=== PATIENT | female | born 2000 | race Caucasian/White ===

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

== ENCOUNTER → 2022-06-28 10:49 | Outpatient (BNVA) | payer MEDICAID, SELFPAY | PROVIDERS: Family Provider Pediatrics Adolescent Medicine; Visit Provider Nurse Practitioner Family | DX: J02.9 Acute pharyngitis, unspecified (principal); J06.9 Acute upper respiratory infection, unspecified; H10.31 Unspecified acute conjunctivitis, right eye | CPT/HCPCS: 87071; 87880 ==

== ENCOUNTER → 2024-02-19 18:07 | Outpatient (BNVA) | payer MEDICAID, SELFPAY | PROVIDERS: Family Provider Pediatrics Adolescent Medicine; Visit Provider Nurse Practitioner | DX: S99.911A Unspecified injury of right ankle, initial encounter (principal); M25.571 Pain in right ankle and joints of right foot; X50.9XXA Other and unspecified overexertion or strenuous movements or postures, initial encounter; W10.1XXA Fall (on)(from) sidewalk curb, initial encounter | CPT/HCPCS: 73610 ==

== ENCOUNTER 2025-02-18 22:43 | Outpatient (CLI) | payer MEDICAID, SELFPAY ==
[2025-02-18 22:43] VITALS: BMI 32.1
[2025-02-18 22:52] VITALS: BP 118/69; PULSE 88; RESP 16; TEMP 35.8
[2025-02-18 23:20] VITALS: BP 100/58; PULSE 87
[2025-02-19 00:43] VITALS: BP 106/71; PULSE 93
[2025-02-19 00:50] VITALS: BP 106/71; PULSE 93; RESP 16; TEMP 35.7; O2SAT 96
== END 2025-02-19 00:51 | disposition home or self-care (01) ==
LOC: OPOB 22:44 → OBGYN 22:45
PROVIDERS: Visit Provider Family Medicine
DX: O26.899 Other specified pregnancy related conditions, unspecified trimester (principal); Z3A.00 Weeks of gestation of pregnancy not specified; R10.9 Unspecified abdominal pain
CPT/HCPCS: 59025; 99211

== ENCOUNTER 2025-02-22 12:21 | Inpatient (IN) | payer MEDICAID, SELFPAY ==
[2025-02-19 00:43] VITALS: RESP 16; TEMP 35.7; O2SAT 96
[2025-02-22] VITALS (23 sets, daily range): BP systolic 91–129; BP diastolic 51–82; PULSE 55–144; RESP 16; TEMP 36–36.9; O2SAT 95–100; BMI 31.8
[2025-02-22 12:45] LABS: Hematocrit 38.8 % (36-47); Hemoglobin 12.90 g/dL (11.27-16.99); Mean Corpuscular HGB Conc 33.2 g/dL (30-55); Mean Corpuscular Hemoglobin 28.5 pg (27-33); Mean Corpuscular Volume 85.7 fl (85-98); Nucleated Red Blood Cells % 0 %; Platelet Count 241 10^3/cmm (157-399); Red Blood Count 4.53 10^6/uL (3.85-5.65); White Blood Count 11.64 10^3/uL (3.29-11.43)
[2025-02-22] MEDS: ROPivacaine premix 200 MG/100 ML PREMIX 10 MG EPIDURAL (13:55)
--- NOTE | 2025-02-22 14:04 | ANES.PREANE2 ---
Pre-Anesthetic Assessment Height/Weight: Height 5 ft 2 in Weight 174 lb Temp Pulse Resp BP Pulse Ox O2 Del Method 96.8 F L 61 16 127/71 100 Room Air 02/22/25 11:37 02/22/25 13:56 02/19/25 00:43 02/22/25 13:56 02/22/25 13:51 02/22/25 11:30 Preop Diagnosis: IUP Was Beta Sabrina taken within 24 hours: N/A Was Clonidine taken within 24 hours: N/A Social No alcohol and No tobacco Exam alert, oriented x 3, clear to auscultation bilaterally and regular rate & rhythm Airway Submandibular: within normal limits Cervical ROM: within normal limits Mallampati: Class II Dentition: full Anesthetic Plan ASA status: 2 Anesthesia: Regional (specify below) Other: G2, P1 here for active labor Denies any issues during Denies any cardiac or pulmonary issues Labs from today reviewed acceptable for procedure Plan for routine epidural placement Medications/Allergies Home Medications ?Medication ?Instructions ?Recorded ?Confirmed ?Last Taken ?Type vit 102-iron 27 mg-folic 1 pkg PO DAILY 08/27/24 02/18/25 Unknown History ac 800 mcg-dha 200 mg-lut oral pack cetirizine 10 mg tablet (All Day 10 mg PO DAILY #30 tabs 10/25/24 02/18/25 Unknown Rx Allergy (cetirizine)) Allergies Allergy/AdvReac Type Severity Reaction Status Date / Time No Known Allergies Allergy Verified 02/18/25 23:06 Current Medications Generic Name Dose Route Start Last Admin Trade Name Freq PRN Reason Stop Dose Admin Lactated Ringer's 1,000 mls @ 999 mls/hr 02/22/25 12:04 02/22/25 13:58 Lactated Ringers IV 999 mls/hr .Q1H1M PRN Administration See label comments Ropivacaine 200 mg in 100 mls @ 10 mls/hr 02/22/25 12:15 02/22/25 13:55 Naropin Premix EPIDURAL 10 mls/hr .Q10H [place] Administration PFSH Anesthesia Medical History Left otitis externa Left acute otitis media Irritable bowel syndrome Group B streptococcal carriage complicating 03/29/2019: GBS culture positive. Needs prophylaxis in labor. Chronic abdominal pain Chronic GERD Influenza A Jul 2019 Family History Family/Other Breast cancer PATERNAL AUNT Patient denies medical problems Patient denies any family history of hypertension, diabetes, heart disease, stroke, hypercholesterolemia, thryoid problems, ovarian cancer, uterine cancer, colon cancer. Social History Smoking and tobacco/nicotine status: current every day tobacco/nicotine user e-cigarettes E-Cigarette Details: with nicotine Second hand smoke exposure: No Alcohol intake: never Substance/Drug Use: never Adopted: No service: No Current occupational exposures/hazards: No Female Reproductive History : 2 Data Anesthesia 02/22/25 12:30 Short CBC 02/22/25 Range/Units 12:30 WBC 11.64 H (3.29-11.43) 10^3/uL Hgb 12.90 (11.27-16.99) g/dL Hct 38.8 (36-47) % MCV 85.7 (85-98) fl Plt Count 241 (157-399) 10^3/cmm Neut % (Auto) 77.6 % Neut # (Auto) 9.03 H (1.8-7.7) 10^3/uL Blood Bank 02/22/25 12:30 Blood Type O Positive Rho(D) Type Rh positive
--- NOTE | 2025-02-22 14:05 | ANES.PROC ---
Anesthesia Procedures Procedure/Date: 02/22/25 Epidural: Time Out Performed: Yes Consents Signed: Procedure Consent Consent: requested by attending/covering physician and from patient Lumbar Level: L3-L4 Epidural position: sitting Additional Comments: CSC performed. Site was sterilely prepped with ChloraPrep. 1% lidocaine was used to numb skin. An 18-gauge epidural needle was then introduced until [id number] was achieved around 7 cm. A 27-gauge spinal needle was then introduced into the spinal canal. 1 cc of 0.25% bupivacaine was then injected into the spinal space. Spinal needle was removed and epidural catheter was then threaded into the epidural space and left at 15 cm to the skin. Sterile dressing was applied. Patient tolerated procedure well. Epidural set at 10 mL/h on 0.2% ropivacaine
[2025-02-22] MEDS: oxytocin 30 UNIT/500 ML BAG 600 UNIT IV (15:11)
--- NOTE | 2025-02-22 15:22 | PM.OPHPUD ---
Labor & Delivery H&P Update Date of Procedure: February 22, 2025 Date H&P Performed: 02/16/25 Admission Diagnosis: Active labor IUP at 39 weeks 6 days gestation Preop diagnosis: IUP
--- NOTE | 2025-02-22 15:23 | P.PCNOB_ITS ---
Delivery Note: Date of delivery: February 22, 2025 Procedure: Normal spontaneous vaginal delivery Pre-Delivery Course: The patient had routine care at [facility]. There were no complications during the . labs: Blood type O+ antibody negative, hepatitis B nonreactive, hepatitis C nonreactive, HIV nonreactive, rubella immune, GC chlamydia negative, RPR nonreactive, UDS negative, Q low risk, she passed her glucose tolerance test, she was GBS negative. Delivery: This is a 24 y/o at 39w5d gestation who presented in active labor. She received an epidural for pain management. Her labor progressed well on its own and she had spontaneous rupture of membranes less than an hour prior to delivery. She only had to push through 2 contractions to have a normal spontaneous vaginal delivery of a viable female infant Apgars 8 and 10 over an intact perineum. The infant was suctioned at delivery and placed on the mother's chest. The cord was clamped and cut. The placenta was delivered grossly intact and normal to inspection. There were no lacerations. Mother and were doing well after delivery. History History History 2 Term 1 0 Miscarriages/Ectopic 0 Living Children 1 A&P PDMP PDMP Reviewed: Not Reviewed Coding Level of Care Code Acute Code for Chg Fwd
[2025-02-22] MEDS: benzocaine-menthol 78 gm Canister 1 SPRAY TOPICAL (17:35)
[2025-02-23 00:52] VITALS: BP 119/77; PULSE 64; RESP 16; TEMP 36.8
[2025-02-23] MEDS: PRENATAL VIT NO.130/IRON/FOLIC 1 EACH TABLET PO (04:02)
[2025-02-23 04:03] VITALS: BP 98/64; PULSE 60; RESP 16; TEMP 36.7; O2SAT 98
[2025-02-23 04:33] LABS: Hematocrit 32.8 % (36-47); Hemoglobin 10.90 g/dL (11.27-16.99); Mean Corpuscular HGB Conc 33.2 g/dL (30-55); Mean Corpuscular Hemoglobin 27.8 pg (27-33); Mean Corpuscular Volume 83.7 fl (85-98); Platelet Count 211 10^3/cmm (157-399); Red Blood Count 3.92 10^6/uL (3.85-5.65); White Blood Count 13.84 10^3/uL (3.29-11.43)
[2025-02-23 09:40] VITALS: BP 99/63; PULSE 70; RESP 16; TEMP 36.9
--- NOTE | 2025-02-23 12:06 | ANE.PACU2 ---
Inpatient post-anesthesia follow up: Airway intact: Yes Vital signs: Temperature 98.0 F Pulse Rate 61 Respiratory Rate 17 Blood Pressure 106/76 Pulse Oximetry 97 Oxygen Delivery Me thod Room Air Oxygen Flow Rate Fraction of Inspir ed Oxygen Hydration adequate: Yes Nausea and vomiting: No Pain level: 1 Mental status: Baseline Epidural Start/End: Epidural Start Date: 02/22/25 Epidural Start Time: 13:55 Epidural End Date: 02/22/25 Epidural End Time: 17:00
--- NOTE | 2025-02-23 12:20 | PM.DCS ---
Discharge Providers Date of Admission: 02/22/25 12: Date of Discharge: February 23, 2025 Attending Provider at Admission: Zulma Gimenez MD Attending Provider at Discharge: Zulma Gimenez MD Primary Care Provider: Elle Smith NP Reason for Visit Reason for Visit: Ctx. 2-4 min Hospital Course Hospital Course This is a 24-year-old G2 now P2 who had a normal spontaneous vaginal delivery of a viable female infant. Mother and infant have done well after delivery. Mother is day #1 and has decreased vaginal bleeding. She is ambulating and tolerating a regular diet. She is comfortable with discharge home. Physical Exam Narrative: Sleeping, easily arousable, heart regular rate and rhythm, lungs clear to auscultation bilaterally, abdomen is soft and nontender, fundus is firm, extremities have trace edema but no calf tenderness Discharge Data Studies Completed and Pending Laboratory Results WBC 13.84 10^3/uL (3.29-11.43) H 02/23/25 04:00 RBC 3.92 10^6/uL (3.85-5.65) 02/23/25 04:00 Hgb 10.90 g/dL (11.27-16.99) L 02/23/25 04:00 Hct 32.8 % (36-47) L 02/23/25 04:00 MCV 83.7 fl (85-98) L 02/23/25 04:00 MCH 27.8 pg (27-33) 02/23/25 04:00 MCHC 33.2 g/dL (30-55) 02/23/25 04:00 RDW 12.5 % (12.1-15.1) 02/23/25 04:00 Plt Count 211 10^3/cmm (157-399) 02/23/25 04:00 MPV 10.9 fL (7.4-10.4) H 02/23/25 04:00 Neut % (Auto) 77.6 % 02/22/25 12:30 Lymph % (Auto) 14.5 % 02/22/25 12:30 Dougherty % (Auto) 6.4 % 02/22/25 12:30 Eos % (Auto) 0.8 % 02/22/25 12:30 Baso % (Auto) 0.3 % 02/22/25 12:30 Neut # (Auto) 9.03 10^3/uL (1.8-7.7) H 02/22/25 12:30 Lymph # (Auto) 1.7 10^3/uL (0.8-4.8) 02/22/25 12:30 Dougherty # (Auto) 0.8 10^3/uL (0.2-0.9) 02/22/25 12:30 Eos # (Auto) 0.1 10^3/uL (0.0-0.8) 02/22/25 12:30 Baso # (Auto) 0.0 10^3/uL (0.0-0.1) 02/22/25 12:30 Nucleated RBC % (auto) 0 % 02/22/25 12:30 Nucleated RBCs # 0.0 /100WBC 02/22/25 12:30 Blood Type O Positive 02/22/25 12:30 Rho(D) Type Rh positive 02/22/25 12:30 Antibody Screen Negative 02/22/25 12:30 Vitals Last Vital Signs Temp 98.4 F 02/23/25 09:40 Pulse 70 02/23/25 09:40 Resp 16 02/23/25 09:40 BP 99/63 02/23/25 09:40 Pulse Ox 98 02/23/25 04:03 O2 Del Method Room Air 02/23/25 04:03 Discharge Plan Discharge Patient Disposition: Home Condition: Stable Prescriptions: Continued PNV 442-colm-jwhla-dha-lutein 27 mg iron-800 mcg-200 mg combo pack 1 pkg PO DAILY cetirizine [All Day Allergy (cetirizine)] 10 mg tablet 10 mg PO DAILY Qty: 30 0RF Discharge Order = DC NOW: Discharge Order (Routine); Ordered 02/23/25 Ordered By: Zulma Gimenez Referrals: Zulma Gimenez MD [Physician, Family Practice] - 04/06/25 9:45 am Referral Note: Your appointment with Dr. Gimenez is scheduled for FridayApril 06 @9:45am. Discharge Diet: Usual diet Discharge Activity: Limit activity as instructed Patient Instructions: Depression (DC), Opioid Safety (DC), Preeclampsia and Eclampsia After Delivery (GEN), Hemorrhage (DC), OB Discharge Report, OB Food/Drug Interaction Guide, Opioid Safety, OB Home Care, OB Vaginal Deliveries, Patient Portal & Tammy Instructions, Abnormal Bleeding Activity Restrictions/Additional Instructions: Nothing per vagina for 6 weeks. Follow-up in 4 weeks Discharge Attestations Time Spent in Discharge Care*: less than 30 min Quality Metrics Clinical Quality Measures [ No reported AMI, CVA or VTE this stay] Coding Level of Care Code Acute Code for Chg Fwd
[2025-02-23 16:00] VITALS: BP 106/76; PULSE 61; RESP 17; TEMP 36.7; O2SAT 97
[2025-02-23 16:39] VITALS: BP 106/76; PULSE 61; RESP 17; TEMP 36.7; O2SAT 97
== END 2025-02-23 16:39 | disposition home or self-care (01) | DRG 807 ==
LOC: OPOB 12:21 → OBGYN 12:21
PROVIDERS: Admitting Provider Family Medicine; Visit Provider Family Medicine
DX: O99.62 Diseases of the digestive system complicating childbirth (principal); Z37.0 Single live birth; Z3A.39 39 weeks gestation of pregnancy; K21.9 Gastro-esophageal reflux disease without esophagitis
CPT/HCPCS: 36415; 59025; 59409; 85025; 85027; 86850; 86900; 99211; J2590; J2795; J7120; J9999